=== PATIENT | female | born 2000 ===

== ENCOUNTER → 2021-09-18 12:18 | Outpatient (CLI) | payer OTHER, SELFPAY ==
[2021-09-18 14:14] LABS: HCG,Quantitative < 2 mIU/ml (0-5.42)
== END ==
PROVIDERS: Visit Provider Nurse Practitioner
DX: N91.2 Amenorrhea, unspecified (principal)
CPT/HCPCS: 36415; 84702

== ENCOUNTER → 2021-09-25 08:16 | Outpatient (CLI) | payer OTHER, SELFPAY ==
[2021-09-25 10:55] LABS: HCG,Quantitative 18 mIU/ml (0-5.42)
== END ==
PROVIDERS: Visit Provider Nurse Practitioner
DX: N91.2 Amenorrhea, unspecified (principal)
CPT/HCPCS: 36415; 84702